=== PATIENT | male | born 1955 | race Caucasian/White ===

== ENCOUNTER 2022-07-26 04:08 | Day surgery (SDC) | payer OTHER ==
[2022-07-24 15:15] VITALS: BMI 26.9
[2022-07-26 08:21] VITALS: TEMP 98
[2022-07-26 09:04] VITALS: BP 100/65
[2022-07-26 09:05] VITALS: PULSE 69; RESP 21
== END 2022-07-26 09:17 | disposition home or self-care (01) ==
LOC: JASU-ENDO 04:08
PROVIDERS: ATTEND Internal Medicine Gastroenterology
PROC: 0DBL8ZX Excision of Transverse Colon, Via Natural or Artificial Opening Endoscopic, Diagnostic (ICD-10-PCS; 2022-07-26)
PROC: 0DBN8ZX Excision of Sigmoid Colon, Via Natural or Artificial Opening Endoscopic, Diagnostic (ICD-10-PCS; principal; 2022-07-26 08:00)
DX: Z12.11 Encounter for screening for malignant neoplasm of colon (principal); D12.5 Benign neoplasm of sigmoid colon; D12.3 Benign neoplasm of transverse colon; K57.30 Diverticulosis of large intestine without perforation or abscess without bleeding; K64.8 Other hemorrhoids
CPT/HCPCS: 88305-TC

== ENCOUNTER 2022-08-02 04:18 | Day surgery (SDC) | payer OTHER ==
[2022-08-01 08:49] VITALS: BMI 27.7
[2022-08-02 08:23] VITALS: TEMP 97.8
[2022-08-02 09:09] VITALS: BP 136/86; PULSE 66; RESP 18
== END 2022-08-02 09:09 | disposition home or self-care (01) ==
LOC: JASU-ENDO 04:18
PROVIDERS: ATTEND Internal Medicine Gastroenterology
PROC: 0DB78ZX Excision of Stomach, Pylorus, Via Natural or Artificial Opening Endoscopic, Diagnostic (ICD-10-PCS; 2022-08-02)
PROC: 0DB68ZX Excision of Stomach, Via Natural or Artificial Opening Endoscopic, Diagnostic (ICD-10-PCS; principal; 2022-08-02 08:00)
DX: K29.50 Unspecified chronic gastritis without bleeding (principal)
CPT/HCPCS: 88305-TC; 88342-TC

== ENCOUNTER 2022-10-11 04:05 | Day surgery (SDC) | payer OTHER ==
[2022-10-09 12:29] VITALS: BMI 26.9
[2022-10-11 08:28] VITALS: TEMP 97.8
[2022-10-11 08:58] VITALS: BP 130/81; PULSE 72; RESP 15
== END 2022-10-11 09:12 | disposition home or self-care (01) ==
LOC: JASU-ENDO 04:05
PROVIDERS: ATTEND Internal Medicine Gastroenterology
PROC: 0DB78ZX Excision of Stomach, Pylorus, Via Natural or Artificial Opening Endoscopic, Diagnostic (ICD-10-PCS; 2022-10-11)
PROC: 0DB68ZX Excision of Stomach, Via Natural or Artificial Opening Endoscopic, Diagnostic (ICD-10-PCS; principal; 2022-10-11 08:00)
DX: K29.50 Unspecified chronic gastritis without bleeding (principal); K44.9 Diaphragmatic hernia without obstruction or gangrene; Z87.19 Personal history of other diseases of the digestive system; I10 Essential (primary) hypertension
CPT/HCPCS: 88305-TC; 88342-TC

== ENCOUNTER 2023-12-04 19:38 | Emergency (ER) | payer OTHER ==
[2023-12-04 19:44] VITALS: BP 144/83; PULSE 79; RESP 18; TEMP 98.1; BMI 28.1
[2023-12-04] MEDS ORDERED: LIDOCAINE 4% PATCH TP ONE (21:12)
[2023-12-04] MEDS ORDERED: KETOROLAC TROMETHAMINE 15 MG/ML VIAL ONE (21:12)
[2023-12-04] MEDS: KETOROLAC TROMETHAMINE 15 MG/ML VIAL IM ONE (21:18)
[2023-12-04] MEDS: LIDOCAINE 4% PATCH TP ONE (21:18)
[2023-12-05] MEDS ORDERED: LIDOCAINE PATCH REMOVAL MC SCH (09:00)
== END 2023-12-04 21:19 | disposition home or self-care (01) ==
LOC: JERFT 19:38
PROC: 3E0133Z Introduction of Anti-inflammatory into Subcutaneous Tissue, Percutaneous Approach (ICD-10-PCS; principal; 2023-12-04)
DX: S46.912A Strain of unspecified muscle, fascia and tendon at shoulder and upper arm level, left arm, initial encounter (principal); X58.XXXA Exposure to other specified factors, initial encounter
CPT/HCPCS: 73030-TC-LT-FY; 93005; 93010; 99284-25